=== PATIENT | female | born 1960 | race Caucasian/White ===

== ENCOUNTER 2019-07-21 12:20 | Day surgery (SDC) | payer BC, OTHER ==
[~2019-07-21] VITALS: Ht 149.9 cm; Wt 59.3 kg
[~2019-07-21 12:20] MED LIST: ATOR-2 PO; CHOL200043 PO
[2019-07-21 12:57] VITALS: Ht 149.9 cm; Wt 59.3 kg
[2019-07-21 14:34] VITALS: BP 171/83; PULSE 59; RESP 19
[2019-07-21] MEDS ORDERED: PROPOFOL 40 ML ONE (15:50)
[2019-07-21] MEDS ORDERED: FENTAnyl 50 MCG/ML VIAL ONE (15:55)
[2019-07-21 16:51] VITALS: BP 150/79
== END 2019-07-21 17:37 | disposition home or self-care (01) ==
LOC: GIL 12:20
PROVIDERS: ATTEND Internal Medicine Gastroenterology
DX: Z12.11 Encounter for screening for malignant neoplasm of colon (principal); K64.8 Other hemorrhoids
CPT/HCPCS: 88305; J3010